=== PATIENT | male | born 1970 | race American Indian/Alaskan Native ===

== ENCOUNTER 2019-08-30 14:44 | Emergency (ER) | payer SELFPAY ==
--- NOTE | 2019-08-30 15:04 | Emergency Department Report ---
Blank Doc - Documentation Documentation: 49-year-old male that presents with headache with uncontrolled HTN. HJas been taking b/p medication. This initial assessment/diagnostic orders/clinical plan/treatment(s) is/are subject to change based on patient's health status, clinical progression and re- assessment by fellow clinical providers in the ED. Further treatment and workup at subsequent clinical providers discretion. Patient/guardians urged not to elope from the ED as their condition may be serious if not clinically assessed and managed. Initial orders include: 1- Patient sent to [facility] for further evaluation and treatment 2- CT head
--- NOTE | 2019-08-30 15:43 | Cat Scan Report ---
CT head/brain wo con INDICATION / CLINICAL INFORMATION: 49 years Male; headache. TECHNIQUE: Routine CT head without contrast. All CT scans at this location are performed using CT dos e reduction for ALARA by means of automated exposure control. COMPARISON: None. FINDINGS: BRAIN / INTRACRANIAL CONTENTS: No acute hemorrhage, mass effect, midline shift, hydrocephalus, or acu te, large territorial infarct. No chronic infarct or atrophy appreciated. There are minimal areas of decreased attenuation in the white matter of the cerebral hemispheres. The se are nonspecific findings and may be related to microangiopathy (hypertension, diabetes, atheroscle rosis), given the patient's age. CRANIOCERVICAL JUNCTION: No significant abnormality. ORBITS: No significant abnormality of visualized orbits. SINUSES / MASTOIDS: Minimal mucosal thickening in the ethmoids. ADDITIONAL FINDINGS: None. IMPRESSION: 1. No focal mass, hemorrhage, hydrocephalus, or acute, large territorial infarct. Signer Name: Ronald Han MD, III Signed: 08/30/2019 3:39 PM Workstation Name: [id number]
[2019-08-30] MEDS ORDERED: METOPROLOL TARTRATE 50 MG TAB PO ONE (16:06)
[2019-08-30] MEDS ORDERED: KETOROLAC 60 MG/2 ML INJ IM ONE (16:06)
--- NOTE | 2019-08-30 17:23 | Emergency Department Report ---
ED General Adult HPI - General Chief complaint: Chest Pain Stated complaint: HEADACHE Time Seen by Provider: 08/30/19 15:02 Source: patient Mode of arrival: Ambulatory Limitations: No Limitations - History of Present Illness Initial comments: Patient is a 49-year-old -[place] male who is presenting with a headache. Patient states that he is poorly compliant with his Norvasc 10 mg. Patient states he started having a light headache that he stated was a 6 out of 10 in severity global. Patient had a history of some chest pain but is chest pain-free at this time. Prior to the patient arriving his blood pressure was 203/135. Patient denies shortness of breath or focal neurological deficits at this time. Severity scale (0 -10): 8 - Related Data Allergies Allergy/AdvReac Type Severity Reaction Status Date / Time No Known Allergies Allergy Unverified 08/30/19 14:55 ED Review of Systems ROS: Stated complaint: HEADACHE Other details as noted in HPI Comment: All other systems reviewed and negative ED Past Medical Hx - Past Medical History Previous Medical History?: Yes Hx Hypertension: Yes - Surgical History Past Surgical History?: No - Social History Smoking Status: Never Smoker Substance Use Type: None ED Physical Exam - General Limitations: No Limitations General appearance: alert, in no apparent distress - Head Head exam: Present: atraumatic, normocephalic - Eye Eye exam: Present: normal appearance - ENT ENT exam: Present: mucous membranes moist - Neck Neck exam: Present: normal inspection - Respiratory Respiratory exam: Present: normal lung sounds bilaterally. Absent: respiratory distress, wheezes, rales, rhonchi - Cardiovascular Cardiovascular Exam: Present: regular rate, normal rhythm, normal heart sounds. Absent: systolic murmur, diastolic murmur, rubs, gallop - GI/Abdominal GI/Abdominal exam: Present: soft, normal bowel sounds. Absent: distended, tenderness, guarding - Rectal Rectal exam: Present: deferred - Extremities Exam Extremities exam: Present: normal inspection - Back Exam Back exam: Present: normal inspection - Neurological Exam Neurological exam: Present: alert, oriented X3 - Psychiatric Psychiatric exam: Present: normal affect, normal mood - Skin Skin exam: Present: warm, dry, intact, normal color. Absent: rash ED Course Vital Signs 08/30/19 08/30/19 15:04 16:30 Temperature 98 F Pulse Rate 103 H 103 H Respiratory 18 Rate Blood Pressure 167/102 167/102 O2 Sat by Pulse 100 Oximetry ED Medical Decision Making - Medical Decision Making CT of the head showed no intracranial hemorrhage. Patient has normal neurological exam. Patient deemed to be stable for continued outpatient therapy. Patient's blood pressures responded to taking his blood pressure medication and a metoprolol. Critical care attestation.: If time is entered above; I have spent that time in minutes in the direct care of this critically ill patient, excluding procedure time. ED Disposition Clinical Impression: Hypertensive urgency, Headache, Medical non-compliance Disposition: DC-01 TO HOME OR SELFCARE Is pt being admited?: No Does the pt Need Aspirin: No Condition: Stable Instructions: Chronic Hypertension (ED) Additional Instructions: Please take your blood pressure medications as prescribed Referrals: ADELAIDA JESUS MD [Staff Physician] - 3-5 Days Time of Disposition: 17:23
[2019-08-30 17:55] VITALS: BP 164/125
== END 2019-08-30 17:51 | disposition home or self-care (01) ==
LOC: EDBD → ED 14:44
DX: I16.0 Hypertensive urgency (principal)
CPT/HCPCS: 70450; 93005; 93010; 96372; 99284; J1885